=== PATIENT | female | born 1995 | race Caucasian/White ===

== ENCOUNTER 2018-12-27 23:12 | Emergency (ER) | payer SELFPAY ==
[2018-12-28] MEDS ORDERED: NORMAL SALINE 1000 ML 1,000 ML IV ONE (00:22)
[2018-12-28] MEDS ORDERED: DICYCLOMINE HCL INJ 20 MG/2 ML AMPULE IM ONE (00:22)
--- NOTE | 2018-12-28 00:22 | ER Document Report ---
ED General - General Chief Complaint: Nausea/Vomiting Stated Complaint: VOMITING,DIZZY Time Seen by Provider: 12/28/18 00:18 Notes: Patient is a 21-year-old female is down visiting from [place] who presents with complaint of sudden onset vomiting diarrhea that started ultimately 2 hours prior to arrival. She says she has had multiple episodes of vomiting as well as multiple episodes of watery stool that appeared to have blood in it. She has crampy abdominal pain that is diffuse. No fevers. No history of inflammatory bowel disease. No other complaints at this time. No recent travel outside the country. No recent antibiotic use. TRAVEL OUTSIDE OF THE [place] IN LAST 30 DAYS: No - Related Data Allergies/Adverse Reactions: No Known Allergies Allergy (Unverified 12/27/18 23:17) Past Medical History - Social History Smoking Status: Never Smoker Frequency of alcohol use: None Drug Abuse: None Family History: Reviewed & Not Pertinent Review of Systems - Review of Systems Notes: My Normal Review Basic REVIEW OF SYSTEMS: CONSTITUTIONAL : Denies fever, chills, or sweats. Denies recent illness. RESPIRATORY: Denies cough, cold, or chest congestion. Denies shortness of breath, difficulty breathing, or wheezing. GASTROINTESTINAL: Normal pain. Vomiting. Diarrhea. GENITOURINARY: Denies difficulty urinating, painful urination, burning, frequency, or blood in urine. SKIN: Denies rash or skin lesions. NEUROLOGICAL: Denies altered mental status or loss of consciousness. Denies headache. Denies weakness or paralysis or loss of use of either side. Denies problems with gait or speech. Denies sensory or motor loss. ALL OTHER SYSTEMS REVIEWED AND NEGATIVE. Physical Exam - Vital signs Vitals: Temp Pulse Resp BP Pulse Ox 97.3 F 108 H 18 102/59 L 100 12/27/18 23:38 12/27/18 23:38 12/27/18 23:38 12/27/18 23:38 12/27/18 23:38 - Notes Notes: General Appearance: Well nourished, alert, cooperative, no acute distress, moderate obvious discomfort. Vitals: reviewed, See vital signs table. Head: no swelling or tenderness to the head Eyes: PERRL, EOMI, Conjuctiva clear Mouth: No decreasd moisture Lungs: No wheezing, No rales, No rhonci, No accessory muscle use, good air exchange bilaterally. Heart: Normal rate, Regular rythm, No murmur, no rub Abdomen: Normal BS, soft, No rigidity, no reproducible abdominal tenderness to palpation., No guarding, no rebound, no abdominal masses, no organomegaly Extremities: good pulses in all extremities, no swelling or tenderness in the extremities, no edema. Skin: warm, dry, appropriate color, no rash Neuro: speech clear, oriented x 3, normal affect, responds appropriately to questions. Course - Re-evaluation Re-evalutation: 12/28/18 03:27 After the dose of Bentyl patient's crampy abdominal pain completely resolved. She continues not have any pain to palpation of her abdomen. She looks well. H er nausea improved with 1 dose of Zofran. Clinically she looks very good. She says she feels much improved. Her vital signs are stable. Her blood work does show 7 bands that she does have a slight bandemia and she does have some blood in her stool per history. Also concern for the possibility of underlying bacterial diarrhea even I think it is less likely. Nonetheless we will place her on 3-day course of azithromycin and we have sent her stool for culture. I informed her that if her culture grows out anything is not being covered we will call her immediately. I informed her that she must have a very low threshold to return to ER if she has worsening diarrhea, recurrent vomiting, fevers, or recurrent pain not responding to the Bentyl. Informed to return to ER immediately if she feels that she is worse in any way. Patient is visiting from [place]. She said she supposed to go back to [place] soon followed very close with her doctor. She has no history of inflammatory bowel disease. I think plantar bowel disease is less likely however she has been having bloody is diarrhea and she mentions that she is had multiple episodes of diarrhea in the recent past and therefore I informed her she should potentially talk to her primary care doctor about the workup for this. Being that the patient's vital signs are stable she has no pain to her abdomen she looks well I feel she is safe to be discharged home. Patient agrees with plan and will be discharged home. Dictation of this chart was performed using voice recognition software; therefore, there may be some unintended grammatical errors. - Vital Signs Vital signs: Temp Pulse Resp BP Pulse Ox 97.3 F 108 H 18 102/59 L 100 12/27/18 23:38 12/27/18 23:38 12/27/18 23:38 12/27/18 23:38 12/27/18 23:38 - Laboratory Result Diagrams: 12/28/18 00:30 12/28/18 00:30 Laboratory results interpreted by me: 12/28/18 12/28/18 00:30 00:30 WBC 13.9 H Seg Neuts % (Manual) 85 H Band Neutrophils % 7 H Lymphocytes % (Manual) 5 L Monocytes % (Manual) 2 L Abs Neuts (Manual) 12.8 H Carbon Dioxide 21 L Glucose 145 H Discharge - Discharge Clinical Impression: Vomiting and diarrhea Condition: Good Disposition: HOME, SELF-CARE Additional Instructions: We have sent your stool for stool culture. We will call you immediately if it grows out bacteria that is not being covered. Being that you are having some bloody stools and we want you to have a low threshold to return to ER if you have worsening diarrhea, recurrent vomiting, fevers, recurrent pain, or if you feel unwell in any way. Please follow-up with your doctor in [place] to see if she get back home for reevaluation. Please talk to him about workup for inflammatory bowel disease such as Crohn's or ulcerative colitis if you are having recurrent episodes of bloody diarrhea or if this becomes a recurring thing. Prescriptions: Azithromycin 500 mg PO DAILY #3 tablet Dicyclomine HCl [Bentyl 20 mg Tablet] 20 mg PO Q12 PRN #15 tablet PRN Reason: Abdominal Cramping Ondansetron [Zofran Odt 4 mg Tablet] 1 tab PO Q4H PRN #12 tab.rapdis PRN Reason: For Nausea/Vomiting
[2018-12-28 00:53] LABS: HEMATOCRIT 42.3 % (36.0-47.0); HEMOGLOBIN 14.2 g/dL (12.0-15.5); MEAN CORPUSCULAR HEMOGLOBIN 27.9 pg (27.0-33.4); MEAN CORPUSCULAR HGB CONC 33.7 g/dL (32.0-36.0); MEAN CORPUSCULAR VOLUME 83 fl (80-97); PLATELET COUNT 388 10^3/uL (150-450); RED BLOOD COUNT 5.11 10^6/uL (3.72-5.28); WHITE BLOOD COUNT 13.9 10^3/uL (4.0-10.5)
[2018-12-28 01:01] LABS: ALANINE AMINOTRANSFERASE 26 U/L (9-52); ALBUMIN 4.1 g/dL (3.5-5.0); ALKALINE PHOSPHATASE 61 U/L (38-126); ANION GAP 14 (5-19); ASPARTATE AMINO TRANSFERASE 30 U/L (14-36); BILIRUBIN,DIRECT 0.1 mg/dL (0.0-0.4); BLOOD UREA NITROGEN 12 mg/dL (7-20); CALCIUM 9.8 mg/dL (8.4-10.2); CARBON DIOXIDE 21 mmol/L (22-30); CHLORIDE 104 mmol/L (98-107); GLUCOSE 145 mg/dL (75-110); SODIUM 138.6 mmol/L (137-145); TOTAL PROTEIN 7.7 g/dL (6.3-8.2)
[2018-12-28 01:11] LABS: ABSOLUTE LYMPHOCYTES# (MANUAL) 0.7 10^3/uL (0.5-4.7); ABSOLUTE MONOCYTES # (MANUAL) 0.3 10^3/uL (0.1-1.4); ABSOLUTE NEUTROPHILS# (MANUAL) 12.8 10^3/uL (1.7-8.2); BAND NEUTROPHILS % (MANUAL) 7 % (3-5); BASOPHILS % (MANUAL) 0 % (0-2); EOSINOPHILS % (MANUAL) 1 % (0-6); LYMPHOCYTES % (MANUAL) 5 % (13-45); MONOCYTES % (MANUAL) 2 % (3-13); PLATELET CLUMPS PRESENT; SEGMENTED NEUTROPHILS % (MAN) 85 % (42-78); TOTAL CELLS COUNTED 100
[2018-12-28 01:12] LABS: TOXIC GRANULATION 1+; TOXIC VACUOLATION PRESENT
[2018-12-28 01:13] LABS: RBC MORPHOLOGY COMMENT NORMO-CYTIC/CHROMIC
[2018-12-28] MEDS ORDERED: NORMAL SALINE 500 ML IV ONE (02:00)
[2018-12-28] MEDS ORDERED: AZITHROMYCIN 250 MG TABLET PO ONE (03:09)
[2018-12-28] MEDS ORDERED: ONDANSETRON ODT 4 MG TAB (6 TAB/ER DISP) PO PRN (03:14)
[2018-12-28 03:39] VITALS: BP 116/67
== END 2018-12-28 03:54 | disposition home or self-care (01) ==
LOC: ER 23:12
DX: R11.2 Nausea with vomiting, unspecified (principal); R19.7 Diarrhea, unspecified; R10.84 Generalized abdominal pain; K92.1 Melena; D72.825 Bandemia
CPT/HCPCS: 99284; 96372; 96360; 96361; 36415; 87045; 87205; 85025; 80053; J0500; J7030; J7040